=== PATIENT | male | born 1955 | race Caucasian/White ===

== ENCOUNTER → 2017-04-23 | Day surgery (SDC) | payer BC ==
[~2017-04-23] VITALS: Ht 177.8 cm; Wt 100.4 kg
[~2017-04-23] MED LIST: AMOXICILLIN500 MG PO; ASPIRIN EC81 MG; CALCIUM600 MG PO; COREG 3.1253.125 MG PO; COZAAR100 MG PO; DILTIAZEM 24HR120 MG PO; DOCUSATE SODIU100 MG PO; IRON325 M1 PO; LEVOTHROID (S125 MCG PO; MULTIVITAMINS1 EAC2 PO; OMEPRAZOLE40 MG PO; PROGRAF 1MG CAPS1 MG PO; REVATIO 20 MG T20 MG PO; SIROLIMUS1 MG PO; ZOCOR20 MG PO
== END | disposition disaster alternative care site (69) ==
LOC: GPOC 04-20 10:00 → GEND 06:49 → GPOC 10:00
PROC: 0DJD8ZZ Inspection of Lower Intestinal Tract, Via Natural or Artificial Opening Endoscopic (ICD-10-PCS; principal; 2017-04-23)
PROC: 0DB68ZX Excision of Stomach, Via Natural or Artificial Opening Endoscopic, Diagnostic (ICD-10-PCS; principal; 2017-04-23)
DX: Z12.11 Encounter for screening for malignant neoplasm of colon (principal); K29.80 Duodenitis without bleeding; Z86.010 Personal history of colon polyps; D50.9 Iron deficiency anemia, unspecified; Z94.0 Kidney transplant status; Z94.83 Pancreas transplant status
CPT/HCPCS: J2001; J7030